=== PATIENT | female | born 1965 | race Caucasian/White ===

== ENCOUNTER → 2019-11-15 | Outpatient (CLI) | payer BC | END | disposition home or self-care (01) | LOC: LAB 08:48 | PROVIDERS: ATTEND Registered Nurse | DX: Z01.818 Encounter for other preprocedural examination (principal); Z11.59 Encounter for screening for other viral diseases; H26.9 Unspecified cataract | CPT/HCPCS: U0003-CS ==

== ENCOUNTER → 2019-11-19 | Day surgery (SDC) | payer BC ==
[~2019-11-19] MED LIST: BALANCED SALT IRRIG OPHTH SOLN 15 ML BOTTLE. IRR ONE; CATARACT OPHTH GEL 0.5 ML SYRINGE. OD ONE; CHONDROIT-SOD-HYALURONATE KIT. OD ONE; EPINEPHrine AMPULE 0.5 MG in BALANCED SALT IRRIG SOLN PLUS 500 ML IO ONE; ERYTHROMYCIN 0.5% OPHTH OINTMENT 1GM TUBE. OD ONE; HYALURONIDASE 75UNITS in LIDOCAINE 2% PF OPHTH 10 ML SYRINGE. OD ONE; IPRATRPIUM/ALBUTEROL 0.5/2.5MG 3 ML NEBU. NEB PRN; IV RINGERS SOLUTION,LACTATED 1,000 ML IV SCH; KETOROLAC TROMETHAMINE 0.5% OPHTH SOLUTION BOTTLE. OD SCH; KETOROLAC TROMETHAMINE 0.5% OPHTH SOLUTION BOTTLE. ONE; MIDAZOLAM HCL PF 2 MG/2 ML VIAL. IV ONE; MOXIFLOXACIN 0.5% OPHTH SOLUTION 3ML BOTTLE. OD SCH; ONDANSETRON PF 4 MG/2 ML VIAL. IV PRN; POVIDONE-IODINE 5% OPHTH SOLUTION 30ML BOTTLE. OD ONE; PROPOFOL 10,000 MCG/ML (20ML) VIAL IV ONE; TETRACAINE 0.5% OPHTH SOLUTION 4ML BOTTLE. OD ONE; TETRACAINE 0.5% OPHTH SOLUTION 4ML BOTTLE. OU ONE; prednisoLONE ACETATE 1% OPHTH SUSPENSION 5ML BOTTLE. OD SCH; prednisoLONE ACETATE 1% OPHTH SUSPENSION 5ML BOTTLE. ONE
[2019-11-19] MEDS: MOXIFLOXACIN 0.5% OPHTH SOLUTION 3ML BOTTLE. OD SCH ×3 (07:40→07:50)
--- NOTE | 2019-11-19 08:34 | PDOC4 ---
Phaco IOL/Cataract/OD Date of Procedure: Nov 19, 2019 Preoperative Diagnosis: Preoperative Diagnosis: Senile Cataract, Right Eye Postoperative Diagnosis: Senile Cataract, Right Eye Anesthesia: Local with monitored anesthesia care Surgeon: Tracey Garcia D.O. Procedure: Right Phacoemulsification with Intraocular Lens Implant Findings: Senile Cataract Indications: Worsening vision interfering with patient's lifestyle Narrative: After discussing the risks, complications and alternatives, including but not limited to loss of vision, infection, bleeding, swelling, anesthetic reaction, capsule rupture with vitreous loss, etc., the patient was given a peribulbar block under mild IV sedation and cardiac monitoring. Pressure was applied to the eye for approximately 10 minutes. The patient was transferred to the main operating room and was prepped and draped in the usual sterile fashion and positioned under the microscope. A lid speculum was placed. A temporal clear corneal incision was made with a keratome and viscoelastic was injected into the eye. A side port incision was made. A continuous tear capsulorrhexis was performed, then hydrodissection was accomplished with balanced salt solution. The phacoemulsification needle was placed in the eye and the nucleus was emulsified. The remaining cortical material was removed with the irrigation and aspiration apparatus. The capsule was polished as needed. The posterior capsule was noted to be clean and intact. Viscoelastic was injected into the eye inflating the capsular bag. An intraocular lens was injected into the eye, unfolding as desired and was positioned in the capsular bag. The viscoelastic was aspirated from the eye. The wound edges were hydrated with balanced salt solution and there were no leaks. Viscoelastic was injected over the limbal incisions. Antibiotic and steroid were placed on the eye. The lid speculum was removed, the eye patched shut and a Page shield applied. There were no complications and the patient was taken to the PACU in good condition. TRCAEY GARCIA DO Nov 19, 2019 08:34
[2019-11-19 08:49] VITALS: BP 146/87
== END | disposition home or self-care (01) ==
LOC: SURG 07:03
PROVIDERS: ATTEND Ophthalmology
DX: H25.11 Age-related nuclear cataract, right eye (principal); F17.210 Nicotine dependence, cigarettes, uncomplicated; Z88.6 Allergy status to analgesic agent; Z88.8 Allergy status to other drugs, medicaments and biological substances; Z98.890 Other specified postprocedural states; Z79.899 Other long term (current) drug therapy
CPT/HCPCS: 66984; J0171; J2704; V2632